=== PATIENT | female | born 1975 | race Caucasian/White ===

== ENCOUNTER 2019-12-16 02:11 | Emergency (ER) | payer BC ==
[2019-12-16] MEDS ORDERED: Cephalexin 500 MG Cap PO ONE (02:41)
--- NOTE | 2019-12-16 02:41 | EDM.PDOC ---
ED HPI GENERAL MEDICAL PROBLEM - General Chief Complaint: Skin Complaint Stated Complaint: CELLULITIS IN RIGHT FOOT Time Seen by Provider: 12/16/19 02:34 Source of Information: Reports: Patient History Limitations: Reports: No Limitations - History of Present Illness INITIAL COMMENTS - FREE TEXT/NARRATIVE: 44-year-old female presents with cellulitis to the right foot after a bug bite on Monday. She started noticing redness to the right foot the next morning. She is currently traveling from [place] to [place] and is stopping here for checkup today. She denies any fever, chills, calf pain or calf swelling. ROS: A 10-point review of systems, other than pertinent positives and negatives as stated per HPI, is otherwise negative PHYSICAL EXAM General: AOx4, GCS = 15, No distress HEENT: dry mucous membrane Neck: supple, no meningismus, no Kernig or Brudzinski Cardiac: S1S2 RRR Respiratory: CTAB, no crackles or rales, no wheezing Abdomen: Soft, nontender, no rebound or guarding, nondistended, no pulsatile mass. Back: nontender Skin: Erythema to the right midfoot, mild erythema to the right anterior ankle. Musculoskeletal: NVI distally, no deformity, no tenderness to the posterior calf or thigh. Negative Homans sign. Neuro: No focal deficits, CN 2 - 12 WNL. 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 ED EXAM, SKIN/RASH Exam: See Below (see dictation) Course - Vital Signs Last Recorded V/S: Last Vital Signs Temp 96.2 F L 12/16/19 02:19 Pulse 86 12/16/19 02:19 Resp 16 12/16/19 02:19 BP 134/86 12/16/19 02:19 Pulse Ox 96 12/16/19 02:19 - Re-Assessments/Exams Free Text/Narrative Re-Assessment/Exam: 12/16/19 02:37 She is stable for discharge. she exhibits normal vital signs and has exhibited a normal gait. I advised the patient to return to the ER for reevaluation if symptoms worsened, and to follow up with their PCP within 2-3 days for recheck. MEDICAL DECISION MAKING: I reviewed the patients past medical records, lab and radiographic findings. I discussed the case with the patient. My differential diagnosis included: Cellulitis, lymphedema, DVT. Patient has no tenderness or swelling to the posterior calf or thigh, she has negative Homans sign, I do not suspect DVT. Clinically she presents with symptoms consistent with cellulitis to the right anterior foot and ankle after a bug bite. She is well-appearing with normal vitals, stable for oral antibiotic treatment until she can get recheck with PCP upon returning to [place]. Departure - Departure Time of Disposition: 02:39 Disposition: Home, Self-Care 01 Condition: Good Clinical Impression: Cellulitis - Discharge Information *PRESCRIPTION DRUG MONITORING PROGRAM REVIEWED*: Not Applicable *COPY OF PRESCRIPTION DRUG MONITORING REPORT IN PATIENT NESTOR: Not Applicable Prescriptions: cephALEXin [Keflex] 500 mg PO QID #28 capsule Instructions: Cellulitis, Adult Referrals: PCP,Not In Area [Primary Care Provider] - 1 Week Additional Instructions: The following information is given to patients seen in the emergency department who are being discharged to home. This information is to outline your options for follow-up care. We provide all patients seen in our emergency department with a follow-up referral. The need for follow-up, as well as the timing and circumstances, are variable depending upon the specifics of your emergency department visit. If you don't have a primary care physician on staff, we will provide you with a referral. We always advise you to contact your personal physician following an emergency department visit to inform them of the circumstance of the visit and for follow-up with them and/or the need for any referrals to a consulting specialist. The emergency department will also refer you to a specialist when appropriate. This referral assures that you have the opportunity for follow-up care with a specialist. All of these measure are taken in an effort to provide you with optimal care, which includes your follow-up. Under all circumstances we always encourage you to contact your private physician who remains a resource for coordinating your care. When calling for follow-up care, please make the office aware that this follow-up is from your recent emergency room visit. If for any reason you are refused follow-up, please contact the [facility] Emergency Department at and asked to speak to the emergency department charge nurse. Sepsis Event Note (ED) - Evaluation Sepsis Screening Result: No Definite Risk - Focused Exam Vital Signs: Vital Signs Temp Pulse Resp BP Pulse Ox 12/16/19 02:19 96.2 F L 86 16 134/86 96
== END 2019-12-16 02:55 | disposition home or self-care (01) ==
LOC: MW.ED 02:11
DX: L03.115 Cellulitis of right lower limb (principal); E03.9 Hypothyroidism, unspecified; Z88.0 Allergy status to penicillin; Z88.2 Allergy status to sulfonamides; Z79.899 Other long term (current) drug therapy
CPT/HCPCS: 99283; A9270; 99282